=== PATIENT | male | born 2000 | race Caucasian/White ===

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

== ENCOUNTER 2020-08-23 12:39 | Outpatient (CLI) | payer MEDICAID | END 2020-08-23 12:40 | disposition home or self-care (01) | LOC: DI 12:39 | PROVIDERS: ATTEND Nurse Practitioner Family | DX: M25.562 Pain in left knee (principal) ==

== ENCOUNTER 2020-08-23 12:46 | Outpatient (CLI) | payer MEDICAID ==
--- NOTE | 2020-08-23 13:56 | XRAY Report ---
PROCEDURE: Knee 3 View LT INDICATIONS: L KNEE PAIN TECHNIQUE: 3 views of the left knee(s) were acquired. COMPARISON: None. FINDINGS: No acute fracture identified. Mild narrowing of the medial joint space. Anterior soft tissue swelling . IMPRESSION: Mild osteoarthritis. If the patient's pain or other symptoms persist, consider further evaluation wit h MRI. Reviewed by: Octaviano Hood MD on 08/23/2020 1:55 PM PDT Approved by: Octaviano Hood MD on 08/23/2020 1:55 PM PDT Station ID: [id number]
== END 2020-08-23 12:47 | disposition home or self-care (01) ==
LOC: DI 12:46
PROVIDERS: ATTEND Nurse Practitioner Family
DX: M17.12 Unilateral primary osteoarthritis, left knee (principal)

== ENCOUNTER 2020-09-08 12:03 | Outpatient (CLI) | payer MEDICAID ==
[2020-09-08] MEDS ORDERED: ALBUTEROL 1 PUFF INH STA (13:13)
== END 2020-09-08 12:04 | disposition home or self-care (01) ==
LOC: RT 12:03
PROVIDERS: ATTEND Nurse Practitioner Family
DX: J45.909 Unspecified asthma, uncomplicated (principal)
CPT/HCPCS: 94060; 94729